=== PATIENT | female | born 1955 ===

== ENCOUNTER 2018-06-30 06:19 | Day surgery (SDC) | payer OTHER ==
[~2018-06-30] VITALS: Ht 162.6 cm; Wt 74.8 kg
[2018-06-30] MEDS ORDERED: MIDAZOLAM 2 MG/2 ML VIAL ONE (09:27)
[2018-06-30] MEDS ORDERED: fentaNYL 0.05 MG/ML VIAL ONE (09:27)
[2018-06-30] MEDS ORDERED: LIDOCAINE 2% 100 MG/5 ML UJET TP ONE (09:27)
[2018-06-30] MEDS ORDERED: fentaNYL 0.05 MG/ML VIAL IVP ONE (10:00)
== END 2018-06-30 09:55 | disposition home or self-care (01) ==
LOC: MDS 06:19 → MMU 06:19 → MDS 09:55
PROVIDERS: ATTEND Internal Medicine Gastroenterology
DX: Z12.11 Encounter for screening for malignant neoplasm of colon (principal); E66.3 Overweight; Z68.28 Body mass index [BMI] 28.0-28.9, adult; Z90.710 Acquired absence of both cervix and uterus; Z98.890 Other specified postprocedural states; Z85.3 Personal history of malignant neoplasm of breast
CPT/HCPCS: 45378; J3010; J2250